=== PATIENT | female | born 1950 | race Caucasian/White ===

== ENCOUNTER 2022-05-21 14:01 | Emergency (ER) | payer OTHER ==
[~2022-05-21] VITALS: Ht 154.9 cm; Wt 101.2 kg
[2022-05-21 14:05] VITALS: BP_SYST 163
--- NOTE | 2022-05-21 14:15 | NUR ---
WHILE IN TRIAGE, CALLED FOR DR PHILLIPS TO COME SEE PT.
--- NOTE | 2022-05-21 14:16 | NUR ---
DR PHILLIPS TO TRIAGE ROOM TO EVALUATE.
--- NOTE | 2022-05-21 14:55 | NUR ---
Patient to ER bed H2 to gown for evaluation. Side rails up. Report given to Elvia INGRAM
--- NOTE | 2022-05-21 15:15 | NUR ---
Note caitlin in ED - 05/21/22 at 1555 by [email or web address] Patient to ER bed H2 to maria for evaluation. Side rails up. Report given to Elvia INGRAM
--- NOTE | 2022-05-21 15:20 | NUR ---
Jalil brought in from home s/p trip and fall onto concrete. Patient has large hematoma on left forehead, purple discoloration around left eye and knee. Abrasion to left elbow and left hand. Patient is on eliquis. Denies any LOC. and AOx4 speaking full sentences. Patient will be observed for 6 hours in ED for signs of bleed. Accucheck 135. Md notified. Patient give apple juice and sitting up at bedside eating [facility] diet.
--- NOTE | 2022-05-21 15:44 | NUR ---
ER at bedside discussing results and plan of care with patient
[2022-05-21] MEDS ORDERED: ACETAMINOPHEN 500 MG TABLET PO ONE ×2 (15:45→20:45)
--- NOTE | 2022-05-21 16:31 | NUR ---
forehead cleaned with normal saline abrasions to left elbow and hand cleansed with betadine and band aid placed.
--- NOTE | 2022-05-21 17:18 | NUR ---
PATIENT ON CELL PHONE AT BEDSIDE. NO ACUTE DISTRESS NOTED.
--- NOTE | 2022-05-21 18:32 | NUR ---
PATIENT SPEAKING TO ON CELL PHONE. NO ACUTE DISTRESS NOTED.
--- NOTE | 2022-05-21 19:42 | NUR ---
PATIENT RESTING IN [place]. NO ACUTE DISTRESS NOTED
--- NOTE | 2022-05-21 21:24 | NUR ---
RETURNED FROM CT SCAN. AWAITING RESULTS
[2022-05-21] MEDS ORDERED: ACET-2634 PO (21:30)
[2022-05-21] MEDS ORDERED: HYDR-3917 PO (21:31)
--- NOTE | 2022-05-21 22:21 | NUR ---
PATIENT AWAITING RESULTS FOR CT SCAN.
[2022-05-21 23:56] VITALS: BP_SYST 163
--- NOTE | 2022-05-21 23:56 | NUR ---
Patient given written and verbal discharge instructions and verbalizes understanding. ER MD discussed with patient the results and treatment provided. Patient in stable condition. ID arm band removed. IV catheter removed intact and dressing applied, no active bleeding. Rx of tylenol extra strength and norco given. Patient educated on pain management and to follow up with PMD. Pain Scale 0/10 Opportunity for questions provided and answered. Medication side effect fact sheet provided.
== END 2022-05-21 23:56 | disposition home or self-care (01) ==
LOC: SED 14:01
DX: S00.83XA Contusion of other part of head, initial encounter (principal); E11.9 Type 2 diabetes mellitus without complications; E78.5 Hyperlipidemia, unspecified; I10 Essential (primary) hypertension; Z79.899 Other long term (current) drug therapy; W10.1XXA Fall (on)(from) sidewalk curb, initial encounter; Y93.89 Activity, other specified; Y92.89 Other specified places as the place of occurrence of the external cause; Y99.8 Other external cause status
CPT/HCPCS: 70450-TC; 72125-TC; 76376; 82962; 99284